=== PATIENT | female | born 1955 | race African-American/Black ===

== ENCOUNTER 2025-07-16 14:40 | Outpatient (AMB) | payer BC, SELFPAY ==
--- NOTE | 2025-07-16 14:44 | A.OFFVIS_ITS ---
Intake Visit Reasons: 1 year follow up/migranes Allergies acetaminophen (From Percocet) Allergy (Unknown, Verified 07/16/25 14:48) unknown oxycodone (From Percocet) Allergy (Unknown, Verified 07/16/25 14:48) unknown Medication List - Last Reconciled 07/16/25 by Tiffany Wilder CNP amitriptyline 10 mg PO BEDTIME npjknspwsh-trbnberqbevkn-mnji 50-325-40 mg 1 tab PO Q6H PRN docusate sodium 100 mg PO BID estradiol 0.01%(0.1mg/gram) 1 g vaginal QWEEK hydrochlorothiazide 25 mg PO DAILY linaclotide (Linzess) 290 mcg PO DAILY losartan 75 mg PO DAILY mirabegron ER (Myrbetriq) 25 mg PO DAILY pantoprazole 40 mg PO DAILY pravastatin 10 mg PO DAILY sumatriptan succinate take 1 tab at onset of headache; if no relief, may repeat 1 tab after at least 2 hrs; max = 2 tabs/24 hrs PO topiramate 50 mg PO BID HPI Comments Details: She had emergency cholecystectomy at [facility] [place] about 2 weeks ago. She had a bad migraine after that lasted about 4 days. Using butalbital as needed which helps. Does not use sumatriptan often as it makes her tired. Has been having some neck pain and tightness for about a month, gets occasional brief, shooting pains up neck and into head. May have started after doing some heavy lifting. No pain into shoulders or arms. No new or increased weakness. No numbness or tingling. She tried lidocaine patches from her sister which helped. She was also using heat. Headaches worse with sinus and allergy symptoms. Occasional migraines relieved with as needed butalbital. Triggers include stress and lack of sleep. Sleep was not so good after mother passed in 10/2023 and some nightmares. Hx of headaches which she attributed to allergies. When the headache is very severe, which is infrequent, there is some sonophobia and nausea. She gets occasional vertigo. Eye exam was normal. She usually takes Excedrin with some relief. She has had intermittent tinnitus in both ears. [facility] Medical History (Updated 07/16/25 @ 14:58 by Tiffany Wilder CNP) Tension headache Hypertension Migraine Review of Systems Const Denies chills, Denies daytime sleepiness, Reports difficulty sleeping, Denies fatigue, Denies fever(s), Denies frequent falls, Reports headache(s), Denies increased appetite, Denies poor appetite, Denies snoring, Denies weakness, Denies weight gain and Denies weight loss Eyes Denies loss of vision ENT Denies vertigo, Reports dizziness, Reports headache(s) and Denies neck pain Card Denies chest pain at rest, Denies chest pain with activity, Denies syncope, Denies leg edema, Denies palpitations, Denies dyspnea and Denies dyspnea on exertion Resp Denies cough, Denies dyspnea, Denies dyspnea on exertion and Denies snoring GI Denies abdominal pain, Denies constipation, Denies heartburn, Denies diarrhea and Denies nausea Denies urinary frequency, Denies urinary incontinence and Denies urinary urgency Musc Denies abnormal gait, Denies back pain, Denies myalgias, Denies arthralgias, Denies neck pain, Denies numbness and Denies tingling Neuro Denies abnormal gait, Denies vertigo, Reports dizziness, Denies syncope, Denies frequent falls, Reports headache(s), Denies lack of coordination, Denies loss of vision, Denies memory loss, Denies numbness, Denies Other visual disturbances, Denies restless legs, Denies seizure-like activity, Denies tingling, Denies paresthesias, Denies tremor(s) and Denies weakness Psych Denies anxiety, Denies depression, Denies auditory hallucinations, Denies memory loss and Denies visual hallucinations Endo Denies fatigue and Denies palpitations Physical Exam Const Other: General Appearance:? normal, in no acute distress. Heart:? S1, S2 normal, no murmurs. Lungs:? clear anteriorly and posteriorly. Musculoskeletal:? normal. Extremities:? no edema. Psych:? alert, oriented, cognitive function intact, cooperative with exam. Neuro Other: Abnormal Neurological Findings:?Walking with walker. Tender cervical paraspinal muscles. ? Mental Status: alert and oriented X 3. Normal attention, orientation, memory, and affect. Cranial Nerves: Pupils are equal, round, and reactive to light. External ocular muscles are intact. Visual ambrose are full, no ptosis. Face is symmetrical, no facial weakness or droop. Facial sensations are normal. Tongue protrudes in midline. Palate elevates symmetrically. Shoulder shrugging is normal Motor Examination: Normal muscle tone, bulk and strength. No atrophy or fasciculations. No drift of the extended upper extremities. DTR 2+. Plantars are flexor. Sensory Exam: Normal light touch, temperature, pinprick, vibration, and joint- position sensations. Rhomberg sign is absent. Coordination: No ataxia. No titubation. Gait Exam: With walker. Cerebellar Signs: Mjlsqd-xk-jzqg is okay. Extrapyramidal System: No tremor, rigidity with normal facial expressions. No bradykinesia. No bradyphrenia. Normal arm swing and posture. No propulsion or retropulsion. Speech: Normal. Assessment & Plan Assessment & Plan (1) Migraine: Code(s): G43.909 - Migraine, unspecified, not intractable, without status migrainosus Category: Medical Qualifiers: Migraine type: unspecified Status migrainosus presence: without status migrainosus Intractability: not intractable Qualified Code(s): G43.909 - Migraine, unspecified, not intractable, without status migrainosus Plan: Continue topiramate 50mg 1 tablet twice a day. Continue amitriptyline 10mg 1 tablet at bedtime. Continue sumatriptan 100mg 1 tablet as needed for migraine. Continue pktausnpot-ZIKR-sdxq 50-325-40mg 1 tablet as needed q6h for headache #30 for 30 days. Continue ondansetron 4mg 1 tablet as needed for nausea/vomiting #15 for 30 days. (2) Cervicalgia: Code(s): M54.2 - Cervicalgia Category: Medical Plan: Treatment options discussed including trying muscle relaxer, which she was declining at this time, and PT, however she was recovering from cholecystectomy and will hold off on this for now - can consider in the future. She tried lidocaine patch in the past which helped some and was asking if this could be prescribed. Start lidocaine patch 4% apply 1 patch to affected area daily for 12 hours, use/side effects reviewed. Follow up in 3 months or sooner as needed. Medications: New scmgmkhynm-mwaryhwafmnbp-pekh 50-325-40 mg 1 tab PO Q6H PRN 30 tabs 3RF headache 30 days lidocaine 4% (Aspercreme (lidocaine)) 1 patch topical DAILY PRN 30 ea 2RF pain 30 days Coding Level of Care Code Est Pt Level 4 (93328) Diagnoses Migraine without status migrainosus, not intractable, unspecified migraine type G43.909 Migraine type: unspecified Status migrainosus presence: without status migrainosus Intractability: not intractable Cervicalgia M54.2
== END 2025-07-16 15:05 | disposition home or self-care (01) ==
PROVIDERS: PCP Family Medicine; Visit Provider Registered Nurse
DX: G43.909 Migraine, unspecified, not intractable, without status migrainosus (principal); M54.2 Cervicalgia
CPT/HCPCS: 99214